=== PATIENT | male | born 1950 | race Caucasian/White ===

== ENCOUNTER 2020-03-26 14:14 | Observation (INO) ==
[2020-03-26] MEDS ORDERED: Acetaminophen 325 MG TABLET PO PRN (17:05)
[2020-03-26] MEDS ORDERED: Naloxone 0.4 MG/ML INJ IVP PRN (17:05)
[2020-03-26] MEDS ORDERED: *HR* OxyCODONE Immed Rel 5 MG TABLET PO PRN (17:05)
[2020-03-26] MEDS ORDERED: Ondansetron 4 MG/2 ML VIAL IVP PRN (17:05)
[2020-03-26] MEDS ORDERED: *HR* HYDROcodone/Acet 5/325 mg TABLET PO PRN (17:05)
[2020-03-26] MEDS ORDERED: Perflutren Lipid Microsphere 1.3 ML in 0.9 % Sodium Chloride 8.7 ML IVP PRN (17:08)
[2020-03-26] MEDS ORDERED: cloNIDine HCL 0.1 MG TABLET PO ONE (17:27)
[2020-03-26] MEDS: *HR* Heparin 5,000 UNIT/ML VIAL SQ SCH (18:38)
[2020-03-26] MEDS: Budesonide/Formoterol 160/4.5 1 PUFF INH IH SCH (22:05)
[2020-03-27] MEDS: *HR* Heparin 5,000 UNIT/ML VIAL SQ SCH (05:47)
[2020-03-27 06:50] LABS: Basophils # 0.1 K/mcL (0.0-0.2); Basophils % 0.8 %; Eosinophils # 0.4 K/mcL (0.0-0.6); Eosinophils % 3.9 %; Hematocrit 38.5 % (37.5-50.1); Hemoglobin 12.1 g/dL (12.9-16.9); Immature Granulocytes % 0.5 % (0-4); Lymphocytes # 1.8 K/mcL (0.6-4.6); Mean Corpuscular HGB Conc 31.4 g/dL (31.6-35.5); Mean Corpuscular Hemoglobin 25.9 pg (28.0-33.3); Mean Corpuscular Volume 82.3 fL (83.0-100.0); Mean Platelet Volume 10.9 fL (9.4-12.4); Monocytes # 0.8 K/mcL (0.0-1.3); Monocytes % 7.9 %; Neutrophils # 7.4 K/mcL (1.6-8.9); Platelet Count 271 K/mcL (140-400); Red Blood Count 4.68 M/mcL (4.19-5.50); Red Cell Distribution Width 14.9 % (11.5-14.5); Segmented Neutrophils % 69.9 %; White Blood Count 10.5 K/mcL (4.3-11.1)
[2020-03-27 07:06] LABS: Calcium 8.7 mg/dL (8.6-10.3); Chol/HDL Ratio 7.3 (0-4.9); Magnesium 1.9 mg/dL (1.6-2.6); Phosphorous 4.1 mg/dL (2.7-4.5); Potassium 4.1 mEq/L (3.5-5.1)
[2020-03-27] MEDS ORDERED: carvediloL 6.25 MG TABLET PO SCH (08:00)
[2020-03-27] MEDS ORDERED: amLODIPine 5 MG TABLET PO SCH (09:00)
[2020-03-27] MEDS ORDERED: Aspirin Enteric Coated 81 MG Tablet PO SCH (09:45)
[2020-03-27] MEDS: Budesonide/Formoterol 160/4.5 1 PUFF INH IH SCH (09:57)
[2020-03-27 11:24] VITALS: BP 181/77
[2020-03-27 12:25] LABS: Estimated Average Glucose 148 mg/dl; Hemoglobin A1C 6.8 %
== END 2020-03-27 15:15 | disposition home or self-care (01) ==
LOC: 3BNU → SUATTDRO 16:52
PROVIDERS: ADMIT Internal Medicine; ATTEND Internal Medicine

== ENCOUNTER 2020-05-23 15:39 | Inpatient (IN) ==
[2020-05-23] MEDS ORDERED: Isovue-370 500 ML BOTTLE IVP ONE (16:24)
[2020-05-23] MEDS ORDERED: 0.9 % Sodium Chloride 1,000 ML IVC ONE (16:24)
[2020-05-23] MEDS ORDERED: Ipratropium/Albuterol Neb 3 ML IH ONE (16:25)
[2020-05-23] MEDS ORDERED: Dexamethasone 4 MG/ML VIAL IVP ONE (16:25)
[2020-05-23 16:32] LABS: Basophils # 0.1 K/mcL (0.0-0.2); Basophils % 0.5 %; Eosinophils # 0.4 K/mcL (0.0-0.6); Eosinophils % 2.9 %; Hematocrit 30.8 % (37.5-50.1); Hemoglobin 9.6 g/dL (12.9-16.9); Immature Granulocytes % 0.5 % (0-4); Lymphocytes # 1.7 K/mcL (0.6-4.6); Lymphocytes % 11.6 %; Mean Corpuscular HGB Conc 31.2 g/dL (31.6-35.5); Mean Corpuscular Hemoglobin 24.7 pg (28.0-33.3); Mean Corpuscular Volume 79.4 fL (83.0-100.0); Mean Platelet Volume 10.7 fL (9.4-12.4); Monocytes # 1.4 K/mcL (0.0-1.3); Monocytes % 9.6 %; Platelet Count 385 K/mcL (140-400); Red Blood Count 3.88 M/mcL (4.19-5.50); Red Cell Distribution Width 15.4 % (11.5-14.5); Segmented Neutrophils % 74.9 %; White Blood Count 14.6 K/mcL (4.3-11.1)
[2020-05-23] MEDS ORDERED: cefTRIAXone 1,000 MG in Water for inj. (sterile) 10 ML IVP ONE (16:33)
[2020-05-23] MEDS ORDERED: Azithromycin 500 MG in 0.9 % Sodium Chloride 250 ML IVPB ONE (16:33)
[2020-05-23 16:57] LABS: BUN/Creatinine Ratio 16 (6-26); Blood Urea Nitrogen 25 mg/dL (8-23); Calcium 8.9 mg/dL (8.6-10.3); Carbon Dioxide 22 mEq/L (23-29); Chloride 105 mEq/L (98-107); Glucose 111 mg/dL (70-105); Osmolality,Calculated 287 (280-300); Potassium 4.7 mEq/L (3.5-5.1); Sodium 136 mEq/L (136-145); Troponin I < 0.03 ng/mL (< 0.04); eGFR For African Americans 52 (> 60); eGFR For Non-African Americans 43 (> 60)
[2020-05-23 17:25] LABS: Adenovirus Not Detected (Not Detect); Bordetella Pertussis Not Detected (Not Detect); Chlamydophila pneumoniae Not Detected (Not Detect); Coronavirus 229E Not Detected (Not Detect); Coronavirus HKU1 Not Detected (Not Detect); Coronavirus NL63 Not Detected (Not Detect); Coronavirus OC43 Not Detected (Not Detect); Human Metapneumovirus Not Detected (Not Detect); Human Rhinovirus/Enterovirus Not Detected (Not Detect); Influenza A Subtype 2009 H1 Not Detected (Not Detect); Influenza B Not Detected (Not Detect); Mycoplasma pneumoniae Not Detected (Not Detect); Parainfluenza Virus 1 Not Detected (Not Detect); Parainfluenza Virus 2 Not Detected (Not Detect); Parainfluenza Virus 3 Not Detected (Not Detect); Parainfluenza Virus 4 Not Detected (Not Detect); Respiratory Syncytial Virus Not Detected (Not Detect); SARS-CoV-2 Not Detected (Not Detect)
[2020-05-23] MEDS ORDERED: Aspirin 81 MG TAB.CHEW PO ONE (19:27)
[2020-05-23] MEDS ORDERED: Naloxone 0.4 MG/ML INJ IVP PRN (20:31)
[2020-05-23] MEDS ORDERED: Acetaminophen 325 MG TABLET PO PRN (20:31)
[2020-05-23] MEDS: Ipratropium/Albuterol Neb 3 ML IH SCH (21:31)
[2020-05-23] MEDS ORDERED: Ipratropium/Albuterol Neb 3 ML IH PRN (22:11)
[2020-05-23] MEDS ORDERED: *HR* Dextrose 50 % in Water (Vial) 50 ML VIAL IVP PRN (22:37)
[2020-05-23] MEDS ORDERED: Dextrose Gel 15 GM/37.5 ML TUBE PO PRN ×2 (22:37)
[2020-05-23] MEDS ORDERED: D5% in Water 1,000 ML IVC PRN (22:37)
[2020-05-23] MEDS: Budesonide/Formoterol 160/4.5 1 PUFF INH IH SCH (23:20)
[2020-05-24 03:06] LABS: Basophils % 0.2 %; Hematocrit 30.3 % (37.5-50.1); Hemoglobin 9.3 g/dL (12.9-16.9); Immature Granulocytes % 0.6 % (0-4); Lymphocytes # 0.7 K/mcL (0.6-4.6); Lymphocytes % 5.8 %; Mean Corpuscular HGB Conc 30.7 g/dL (31.6-35.5); Mean Corpuscular Hemoglobin 24.5 pg (28.0-33.3); Mean Corpuscular Volume 79.7 fL (83.0-100.0); Mean Platelet Volume 10.4 fL (9.4-12.4); Monocytes # 0.2 K/mcL (0.0-1.3); Monocytes % 1.6 %; Neutrophils # 10.8 K/mcL (1.6-8.9); Platelet Count 382 K/mcL (140-400); Red Cell Distribution Width 15.4 % (11.5-14.5); Segmented Neutrophils % 91.8 %; White Blood Count 11.8 K/mcL (4.3-11.1)
[2020-05-24] MEDS: Ipratropium/Albuterol Neb 3 ML IH SCH ×4 (03:17→21:24)
[2020-05-24 03:26] LABS: BUN/Creatinine Ratio 16 (6-26); Blood Urea Nitrogen 28 mg/dL (8-23); Calcium 8.5 mg/dL (8.6-10.3); Carbon Dioxide 20 mEq/L (23-29); Chloride 107 mEq/L (98-107); Glucose 264 mg/dL (70-105); Osmolality,Calculated 299 (280-300); Potassium 4.6 mEq/L (3.5-5.1); Sodium 137 mEq/L (136-145); eGFR For African Americans 48 (> 60); eGFR For Non-African Americans 39 (> 60)
[2020-05-24] MEDS: *HR* Heparin 5,000 UNIT/ML VIAL SQ SCH ×2 (06:30→17:00)
[2020-05-24 07:55] LABS: Troponin I < 0.03 ng/mL (< 0.04)
[2020-05-24] MEDS: amLODIPine 5 MG TABLET PO SCH (08:15)
[2020-05-24] MEDS: Insulin LISPRO 300 UNITS/3 ML VIAL SQ SCH ×4 (08:16→20:49)
[2020-05-24] MEDS: cloNIDine HCL 0.1 MG TABLET PO SCH ×3 (08:18→20:50)
[2020-05-24] MEDS: Cholecalciferol (D-3) 1,000 UNIT (25MCG) TABLET PO SCH (08:18)
[2020-05-24] MEDS: Cyanocobalamin (B-12) 1,000 MCG TABLET PO SCH (08:19)
[2020-05-24] MEDS: Aspirin Enteric Coated 81 MG Tablet PO SCH (08:19)
[2020-05-24] MEDS: carvediloL 25 MG TABLET PO SCH ×2 (08:19→16:59)
[2020-05-24] MEDS: methylPREDNISolone 125 MG/2 ML VIAL IVP SCH (08:22)
[2020-05-24] MEDS: cefTRIAXone 2,000 MG in Water for inj. (sterile) 20 ML IVP SCH (08:24)
[2020-05-24] MEDS: Nicotine 7 MG PATCH.TD24 TD SCH (08:30)
[2020-05-24] MEDS: Budesonide/Formoterol 160/4.5 1 PUFF INH IH SCH ×2 (09:51→21:25)
[2020-05-24] MEDS ORDERED: 0.9 % Sodium Chloride 1,000 ML IVC SCH (14:30)
[2020-05-25 01:28] LABS: Basophils % 0.1 %; Hemoglobin 8.5 g/dL (12.9-16.9); Immature Granulocytes % 0.9 % (0-4); Lymphocytes # 1.3 K/mcL (0.6-4.6); Mean Corpuscular HGB Conc 30.4 g/dL (31.6-35.5); Mean Corpuscular Hemoglobin 23.9 pg (28.0-33.3); Mean Corpuscular Volume 78.9 fL (83.0-100.0); Mean Platelet Volume 10.3 fL (9.4-12.4); Monocytes # 1.1 K/mcL (0.0-1.3); Platelet Count 457 K/mcL (140-400); Red Blood Count 3.55 M/mcL (4.19-5.50); Red Cell Distribution Width 15.6 % (11.5-14.5)
[2020-05-25 01:30] LABS: White Blood Count 21.6 K/mcL (4.3-11.1)
[2020-05-25 01:44] LABS: Calcium 8.5 mg/dL (8.6-10.3); Potassium 4.4 mEq/L (3.5-5.1)
[2020-05-25] MEDS: Ipratropium/Albuterol Neb 3 ML IH SCH ×4 (03:13→21:35)
[2020-05-25] MEDS: *HR* Heparin 5,000 UNIT/ML VIAL SQ SCH ×2 (04:49→17:43)
[2020-05-25] MEDS: Insulin LISPRO 300 UNITS/3 ML VIAL SQ SCH ×4 (07:59→20:12)
[2020-05-25] MEDS ORDERED: Ondansetron 4 MG/2 ML VIAL IVP PRN (08:09)
[2020-05-25] MEDS ORDERED: *HR* HYDROmorphone PF 0.5 MG/0.5 ML SYRINGE IVP PRN (08:09)
[2020-05-25] MEDS ORDERED: Lidocaine HCL 4 ML Topical Solution (Laryng-O-Jet Kit Sterile Pak) TP ONE (08:09)
[2020-05-25] MEDS ORDERED: *HR* Promethazine 25 MG/ML VIAL IVP PRN (08:09)
[2020-05-25] MEDS ORDERED: *HR* OxyCODONE Immed Rel 5 MG TABLET PO PRN (08:09)
[2020-05-25] MEDS ORDERED: Lidocaine -MPF 2% 2 ML VIAL ONE (08:09)
[2020-05-25] MEDS ORDERED: *HR* Succinylcholine 200 MG/10 ML VIAL IVP ONE (08:09)
[2020-05-25] MEDS ORDERED: *HR* Metoprolol 5 MG/5 ML VIAL IVP ONE (08:36)
[2020-05-25] MEDS ORDERED: *HR* EPINEPHrine 1 MG/10 ML SYRINGE INTRATRACH PRN (08:49)
[2020-05-25] MEDS: Budesonide/Formoterol 160/4.5 1 PUFF INH IH SCH ×2 (09:45→21:35)
[2020-05-25] MEDS: carvediloL 25 MG TABLET PO SCH ×2 (10:06→17:41)
[2020-05-25] MEDS: amLODIPine 5 MG TABLET PO SCH (10:08)
[2020-05-25] MEDS: Cholecalciferol (D-3) 1,000 UNIT (25MCG) TABLET PO SCH (10:08)
[2020-05-25] MEDS: Aspirin Enteric Coated 81 MG Tablet PO SCH (10:09)
[2020-05-25] MEDS: cefTRIAXone 2,000 MG in Water for inj. (sterile) 20 ML IVP SCH (10:09)
[2020-05-25] MEDS: cloNIDine HCL 0.1 MG TABLET PO SCH ×3 (10:09→20:12)
[2020-05-25] MEDS: Cyanocobalamin (B-12) 1,000 MCG TABLET PO SCH (10:09)
[2020-05-25] MEDS: Nicotine 7 MG PATCH.TD24 TD SCH (10:09)
[2020-05-25] MEDS: methylPREDNISolone 125 MG/2 ML VIAL IVP SCH (10:10)
[2020-05-25] MEDS ORDERED: 0.9 % Sodium Chloride 1,000 ML IVC SCH (12:45)
[2020-05-25 16:00] LABS: Source of Body Fluid Right Lower Lobe BAL
[2020-05-25 17:16] LABS: Appearance of Body Fluid Cloudy (Clear); Volume of Body Fluid 11 mL
[2020-05-26] MEDS: Ipratropium/Albuterol Neb 3 ML IH SCH ×2 (04:01→09:47)
[2020-05-26] MEDS: *HR* Heparin 5,000 UNIT/ML VIAL SQ SCH (05:46)
[2020-05-26 07:17] VITALS: BP 157/70
[2020-05-26 07:20] LABS: Basophils % 0.2 %; Hematocrit 28.3 % (37.5-50.1); Hemoglobin 8.7 g/dL (12.9-16.9); Immature Granulocytes % 1.4 % (0-4); Lymphocytes # 1.5 K/mcL (0.6-4.6); Lymphocytes % 8.5 %; Mean Corpuscular HGB Conc 30.7 g/dL (31.6-35.5); Mean Corpuscular Hemoglobin 24.7 pg (28.0-33.3); Mean Corpuscular Volume 80.4 fL (83.0-100.0); Mean Platelet Volume 10.4 fL (9.4-12.4); Monocytes # 0.9 K/mcL (0.0-1.3); Monocytes % 4.9 %; Neutrophils # 15.2 K/mcL (1.6-8.9); Platelet Count 491 K/mcL (140-400); Red Blood Count 3.52 M/mcL (4.19-5.50); Red Cell Distribution Width 15.9 % (11.5-14.5); White Blood Count 17.8 K/mcL (4.3-11.1)
[2020-05-26 07:41] LABS: Calcium 8.7 mg/dL (8.6-10.3); Potassium 4.4 mEq/L (3.5-5.1)
[2020-05-26] MEDS: Cyanocobalamin (B-12) 1,000 MCG TABLET PO SCH (08:22)
[2020-05-26] MEDS: amLODIPine 5 MG TABLET PO SCH (08:22)
[2020-05-26] MEDS: cloNIDine HCL 0.1 MG TABLET PO SCH (08:22)
[2020-05-26] MEDS: Aspirin Enteric Coated 81 MG Tablet PO SCH (08:22)
[2020-05-26] MEDS: carvediloL 25 MG TABLET PO SCH (08:22)
[2020-05-26] MEDS: Cholecalciferol (D-3) 1,000 UNIT (25MCG) TABLET PO SCH (08:23)
[2020-05-26] MEDS: methylPREDNISolone 125 MG/2 ML VIAL IVP SCH (08:25)
[2020-05-26] MEDS: cefTRIAXone 2,000 MG in Water for inj. (sterile) 20 ML IVP SCH (08:27)
[2020-05-26] MEDS: Insulin LISPRO 300 UNITS/3 ML VIAL SQ SCH (08:30)
[2020-05-26] MEDS: Nicotine 7 MG PATCH.TD24 TD SCH (08:32)
[2020-05-26] MEDS: Budesonide/Formoterol 160/4.5 1 PUFF INH IH SCH (09:48)
== END 2020-05-26 10:16 | disposition home or self-care (01) | DRG 871 ==
LOC: EMEROOARM 15:39 → 3BNU 15:39 → SUATTDRO 19:39 → 3BNU 20:37 → SUATTDRO 05-24 16:07
PROVIDERS: ADMIT Internal Medicine; ATTEND Family Medicine

== ENCOUNTER 2021-04-11 06:03 | Inpatient (IN) ==
[~2021-04-11 06:03] MED LIST: Vancomycin 1,000 MG, Sodium Chloride IRRigation 1,000 ML IR ONE
[2021-04-11] MEDS ORDERED: CeFAZolin Syr 2,000MG/20 ML 2,000 MG/20 ML SYRINGE IVPB ONE (06:26)
[2021-04-11] MEDS ORDERED: Ringers Solution, Lactated 1,000 ML IVC SCH (06:30)
[2021-04-11] MEDS ORDERED: Lidocaine -MPF 2% 2 ML VIAL ONE ×2 (06:59→07:54)
[2021-04-11] MEDS ORDERED: Ondansetron 4 MG/2 ML VIAL ONE (06:59)
[2021-04-11] MEDS ORDERED: *HR* Rocuronium Bromide 50 MG/5 ML VIAL ONE (06:59)
[2021-04-11] MEDS ORDERED: *HR* Succinylcholine 200 MG/10 ML VIAL IVP ONE (06:59)
[2021-04-11] MEDS ORDERED: Lidocaine HCL 4 ML Topical Solution (Laryng-O-Jet Kit Sterile Pak) TP ONE (06:59)
[2021-04-11] MEDS ORDERED: *HR* Propofol 200 MG/20 ML VIAL IVP ONE (06:59)
[2021-04-11] MEDS ORDERED: *HR* Remifentanil 2 MG VIAL IVP ONE (06:59)
[2021-04-11] MEDS ORDERED: *HR* FentaNYL (PF) 100 MCG/2 ML VIAL ONE ×2 (06:59→10:43)
[2021-04-11] MEDS ORDERED: Vancomycin 1,500 MG/265 ML IV.SOLN IVPB ONE ×2 (07:00→21:00)
[2021-04-11] MEDS ORDERED: Heparin 1,000 UNITS/500 mL 0 ML ONE (07:04)
[2021-04-11] MEDS ORDERED: *HR* Vasopressin 20 UNIT/ML VIAL ONE (07:12)
[2021-04-11] MEDS ORDERED: Heparin 1,000 UNITS/500 mL 1,000 ML ONE (07:13)
[2021-04-11] MEDS ORDERED: Protamine Sulfate 50 MG/5 ML VIAL IVP ONE (07:13)
[2021-04-11] MEDS ORDERED: Bupivacaine-MPF 0.25% 10 ML VIAL ONE (07:13)
[2021-04-11] MEDS ORDERED: *HR* OxyCODONE Immed Rel 5 MG TABLET PO PRN ×2 (07:14→13:16)
[2021-04-11] MEDS ORDERED: *HR* HYDROmorphone PF 0.5 MG/0.5 ML SYRINGE IVP PRN (07:14)
[2021-04-11] MEDS ORDERED: Ondansetron 4 MG/2 ML VIAL IVP PRN ×2 (07:14→13:16)
[2021-04-11] MEDS ORDERED: *HR* Phenylephrine 10 MG/ML VIAL ONE (07:23)
[2021-04-11] MEDS ORDERED: *HR* Heparin 5,000 UNIT/ML VIAL ONE (07:53)
[2021-04-11] MEDS ORDERED: *HR* Midazolam HCl 2 MG/2 ML VIAL ONE (07:53)
[2021-04-11] MEDS ORDERED: EPHEDrine 50 MG/ML VIAL ONE (09:48)
[2021-04-11] MEDS ORDERED: Sugammadex Sodium 200 MG/2 ML VIAL IV ONE (10:57)
[2021-04-11] MEDS ORDERED: *HR* Labetalol 20 MG/4 ML SYRINGE IVP PRN (13:16)
[2021-04-11] MEDS ORDERED: Ipratropium/Albuterol Neb 3 ML IH PRN (13:16)
[2021-04-11] MEDS ORDERED: Acetaminophen 325 MG TABLET PO PRN (13:16)
[2021-04-11] MEDS ORDERED: Naloxone 0.4 MG/ML INJ IVP PRN (13:16)
[2021-04-11] MEDS ORDERED: 0.9 % Sodium Chloride 500 ML IVC SCH (13:30)
[2021-04-11] MEDS: Aspirin Enteric Coated 81 MG Tablet PO SCH (14:58)
[2021-04-11] MEDS: *HR* Metoprolol 5 MG/5 ML VIAL IVP SCH ×3 (14:59→23:44)
[2021-04-11] MEDS: Pregabalin 75 MG CAPSULE PO SCH ×2 (14:59→20:35)
[2021-04-11] MEDS: CeFAZolin 2 GM/120 ML BAG IVPB SCH ×2 (16:08→23:43)
[2021-04-11] MEDS: *HR* HYDROcodone/Acet 5/325 mg TABLET PO PRN (16:08)
[2021-04-11] MEDS: Budesonide/Formoterol 160/4.5 1 PUFF INH IH SCH (20:17)
[2021-04-12] MEDS: *HR* Metoprolol 5 MG/5 ML VIAL IVP SCH (05:46)
[2021-04-12] MEDS: *HR* HYDROcodone/Acet 5/325 mg TABLET PO PRN (05:55)
[2021-04-12] MEDS ORDERED: *HR* Heparin 5,000 UNIT/ML VIAL SQ SCH ×2 (06:00)
[2021-04-12] MEDS: Budesonide/Formoterol 160/4.5 1 PUFF INH IH SCH (07:40)
[2021-04-12] MEDS: Aspirin Enteric Coated 81 MG Tablet PO SCH (08:13)
[2021-04-12] MEDS: Pregabalin 75 MG CAPSULE PO SCH (08:14)
[2021-04-12] MEDS ORDERED: cloNIDine HCL 0.1 MG TABLET PO SCH (09:00)
[2021-04-12] MEDS ORDERED: carvediloL 25 MG TABLET PO SCH (09:00)
[2021-04-12] MEDS ORDERED: amLODIPine 5 MG TABLET PO SCH (09:00)
[2021-04-12 11:39] VITALS: BP 149/75; PULSE 75; TEMP 97.8; O2SAT 95
== END 2021-04-12 14:02 | disposition home or self-care (01) | DRG 39 ==
LOC: SAMDAY 06:03 → 2NNU 08:06
PROVIDERS: ADMIT Surgery; ATTEND Surgery